=== PATIENT | male | born 1995 | race Caucasian/White ===

== ENCOUNTER 2018-08-02 08:44 | Emergency (ER) | payer OTHER, SELFPAY ==
[2018-08-02] MEDS ORDERED: Ondansetron PF 4 MG/2 ML Vial ONE (09:26)
[2018-08-02] MEDS ORDERED: Morphine 4 MG/ML VIAL ONE (09:26)
[2018-08-02] MEDS ORDERED: Ketorolac Tromethamine 30 MG/ML VIAL ONE (09:26)
[2018-08-02] MEDS ORDERED: Sodium Chloride 0.9% 1,000 ML ONE (09:27)
--- NOTE | 2018-08-02 09:37 | RAD ---
RIGHT LEG 2 VIEWS: HISTORY: Injury, right leg pain. FINDINGS/IMPRESSION: 1. There is a mildly displaced fracture involving the medial malleolus. 2. There is a mildly displaced comminuted fracture involving the distal shaft of the right fibul a. POS: [facility]
--- NOTE | 2018-08-02 09:39 | RAD ---
RIGHT FOOT 2 PORTABLE VIEWS: INDICATION: Injury to right foot with pain. FINDINGS: Two portable views were obtained. The 2-view study is inadequate for adequate trauma evaluation of t he foot. There is no evidence of fracture involving the tarsals, metatarsals, or phalanges on this 2 -view study. Lateral view shows evidence of a comminuted fracture involving the distal fibula which is suboptimall y evaluated. See dedicated exam of tibia fibula. IMPRESSION: No evidence of fracture of right foot. There is evidence of a distal fibula fracture which is inadeq uately evaluated. POS: [facility]
[2018-08-02] MEDS ORDERED: Fentanyl 100 MCG/2 ML VIAL ONE (09:52)
[2018-08-02 10:15] LABS: #Basophils 0.1 thou/uL (0.0-0.2); #Eosinphils 0.2 thou/uL (0.0-0.7); #Lymphocytes 1.4 thou/uL (1.20-3.40); #Monocytes 0.5 thou/uL (0.11-0.59); %Basophils 0.5 % (0.0-1.0); %Eosinophils 1.6 % (0.0-10.0); %Lymphocytes 10.7 % (21.0-51.0); %Monocytes 4.1 % (0.0-10.0); %Neutrophils 83.2 % (42.0-75.0); Hemoglobin 14.4 g/dL (14.0-18.0); Mean Corpuscular HGB CONC 32.7 g/dL (32.0-36.0); Mean Corpuscular Hemoglobin 29.8 pg (27.0-31.0); Mean Corpuscular Volume 91.2 fL (78.0-98.0); Mean Platelet Volume 6.6 fL (7.4-10.4); Platelet Count 332 thou/uL (130-400); RBC Distribution Width 11.6 % (11.5-14.5); Red Blood Cell (RBC) Count 4.82 mill/uL (4.70-6.10); White Blood Cell (WBC) Count 13.2 thou/uL (4.8-10.8)
[2018-08-02 10:22] LABS: ALT (SGPT) 32 U/L (8-55); AST (SGOT) 20 U/L (5-34); Alkaline Phosphatase 97 U/L (40-150); Anion Gap 13 mmol/L (10-20); BUN (Urea Nitrogen) 10 mg/dL (8.9-20.6); Bilirubin, Total 0.8 mg/dL (0.2-1.2); Calc. Creatinine Clearance 0 mL/min (70-130); Calcium 9.1 mg/dL (7.8-10.44); Carbon Dioxide 26 mmol/L (22-29); Chloride 106 mmol/L (98-107); Estimated GFR-MDRD Greater than 90; Globulin 2.8 g/dL (2.4-3.5); Glucose 142 mg/dL (70-105); Potassium 3.9 mmol/L (3.5-5.1); Protein, Total 6.8 g/dL (6.0-8.3); Sodium 141 mmol/L (136-145)
[2018-08-02] MEDS ORDERED: HYDROcodone/Acetaminophen 10/325 mg Tablet ONE (10:45)
== END 2018-08-02 10:55 | disposition home or self-care (01) ==
LOC: MADERS 08:44
DX: S82.831A Other fracture of upper and lower end of right fibula, initial encounter for closed fracture (principal); S82.51XA Displaced fracture of medial malleolus of right tibia, initial encounter for closed fracture; J45.909 Unspecified asthma, uncomplicated; W23.0XXA Caught, crushed, jammed, or pinched between moving objects, initial encounter
CPT/HCPCS: 36415; 80053; 85025; 96374; 96375; J1885; J2270; J2405; J3010; J7050